=== PATIENT | male | born 1955 | race Caucasian/White ===

== ENCOUNTER 2016-03-10 15:14 | Emergency (ER) | payer MEDICAID ==
[~2016-03-10] VITALS: Ht 170.2 cm; Wt 78.2 kg
[~2016-03-10 15:14] MED LIST: 00186-0370-20 IH; ALBUTEROL SULFAT3 M3 IH; AMOXICILLIN 8751 TAB PO; COLACE 100100 MG/CAP PO; COMBIRESP IH; COMBIVENT INH14.7 GM IH; COZAAR 50MG50 MG/TAB PO; DIFLUCAN150 MG PO; DILAUDID 2MG TAB2 MG PO; DILAUDID 4MG TAB4 MG PO; FLEXERIL 1010 MG/TAB PO; FORADIL AERO0.012 MG IH; GENTAMICIN180 MG/502 NS; IPRATROPIUM BROM3 M1 IH; LEVAQUIN 5500 MG/TA1 PO; LEVAQUIN 750MG750 M1 PO; MIRALAX PA17 GM/Dose PO; MORPHINE 1515 MG/TAB PO; MS CONTIN 330 MG/TAB PO; MSIR30 MG PO; NASONEX SPRAY17 GM NS; NIRAVAM1 MG PO; PREDNISONE20 MG PO; PROAIR HFA0.09 MG/AC IH; PROVIGIL200 MG PO; RT SPIRIVA18 MCG IH; STOOL SOFTENER100 M2 PO; SYNTHROID 0.10.15 MG PO; TIROSINT150 MCG PO; XANAX 1MG1 MG PO
[2016-03-10 15:18] VITALS: TEMP 98.5
[2016-03-10 16:14] LABS: BASO % 0.2 % (0.0-2.0); EOS # 0.1 (0.0-0.7); EOS % 1.5 % (0-4.0); GRAN # 3.7 (1.4-6.5); GRAN % 77.4 % (42.2-75.2); LYMPH # 0.5 (1.2-3.4); LYMPH % 11.4 % (20.0-51.0); MEAN CELL VOLUME 91 fl (80.0-100.0); MEAN CORPUSCULAR HGB CONC 31 g/dl (33.0-37.0); MEAN PLATELET VOLUME 12.6 fl (7.4-10.4); MONO # 0.4 (0.1-0.6); MONO % 9.1 % (1.7-9.3); PLATELET COUNT 91 K/mm3 (130-400); RED BLOOD COUNT 3.08 M/mm3 (4.20-5.60); REDCELL DISTRIBUTION WIDTH-CV 18.5 % (11.5-14.5); WHITE BLOOD COUNT 4.7 K/mm3 (4.8-10.8)
[2016-03-10 16:29] LABS: ADJUSTED CALCIUM 8.4 mg/dL (8.4-10.2); ALBUMIN 2.6 gm/dL (3.5-5.0); BILIRUBIN,TOTAL 0.7 mg/dL (0.0-1.0); CALCIUM 7.3 mg/dL (8.4-10.2); CREATININE, serum 0.63 mg/dL (0.66-1.25); POTASSIUM 3.6 mmol/L (3.4-5.0); TOTAL PROTEIN 5.7 gm/dL (6.4-8.2)
[2016-03-10 16:40] LABS: HEMATOCRIT 28.1 % (42.0-52.0); HEMOGLOBIN 8.6 g/dl (13.5-18.0); MEAN CORPUSCULAR HEMOGLOBIN 28 pg (27.0-31.0)
[2016-03-10] MEDS ORDERED: FLEXERIL 1010 MG/TAB PO (16:48)
[2016-03-10 16:51] LABS: INR 1.1 (0.8-3.0); PROTHROMBIN TIME 12.3 SECONDS (9.7-12.8)
[2016-03-10] MEDS ORDERED: MSIR30 MG PO (16:51)
[2016-03-10 18:19] LABS: PERITONEAL FLUID RBC 1000 /mm3 (0-0)
[2016-03-10] MEDS ORDERED: ALDACTONE 100M100 MG PO (18:34)
[2016-03-10 19:20] VITALS: BP 116/66; PULSE 89
== END 2016-03-10 19:25 | disposition home or self-care (01) ==
LOC: COL.ER 15:14
PROVIDERS: Emergency Medicine
DX: R18.8 Other ascites (principal); R10.84 Generalized abdominal pain; D64.9 Anemia, unspecified; D69.6 Thrombocytopenia, unspecified; D72.819 Decreased white blood cell count, unspecified; K76.9 Liver disease, unspecified; J18.9 Pneumonia, unspecified organism; J44.9 Chronic obstructive pulmonary disease, unspecified; Z99.81 Dependence on supplemental oxygen; Z87.891 Personal history of nicotine dependence
CPT/HCPCS: J1170

== ENCOUNTER 2016-03-17 11:41 | Emergency (ER) | payer MEDICAID ==
[~2016-03-17] VITALS: Ht 170.2 cm; Wt 75.5 kg
[~2016-03-17 11:41] MED LIST changes: +ALDACTONE 100M100 MG PO
[2016-03-17 11:42] VITALS: TEMP 98.8
[2016-03-17 16:05] VITALS: BP 117/78; PULSE 65
== END 2016-03-17 16:13 ==
LOC: COL.ER 11:41
DX: R18.8 Other ascites (principal); K74.60 Unspecified cirrhosis of liver; R06.00 Dyspnea, unspecified
CPT/HCPCS: 19804

== ENCOUNTER → 2016-03-18 | Outpatient (CLI) | payer MEDICAID ==
[2016-03-18 18:57] LABS: ADJUSTED CALCIUM 8.9 mg/dL (8.4-10.2); ALBUMIN 2.5 gm/dL (3.5-5.0); BILIRUBIN,TOTAL 0.6 mg/dL (0.0-1.0); CALCIUM 7.7 mg/dL (8.4-10.2); CREATININE, serum 0.66 mg/dL (0.66-1.25); POTASSIUM 3.9 mmol/L (3.4-5.0); TOTAL PROTEIN 5.8 gm/dL (6.4-8.2)
[2016-03-18 18:58] LABS: BASO % 0.3 % (0.0-2.0); EOS # 0.2 (0.0-0.7); EOS % 6.5 % (0-4.0); GRAN # 2.4 (1.4-6.5); GRAN % 67.9 % (42.2-75.2); LYMPH # 0.6 (1.2-3.4); LYMPH % 16.3 % (20.0-51.0); MEAN CELL VOLUME 90 fl (80.0-100.0); MEAN CORPUSCULAR HGB CONC 31 g/dl (33.0-37.0); MEAN PLATELET VOLUME 12.4 fl (7.4-10.4); MONO # 0.3 (0.1-0.6); MONO % 8.7 % (1.7-9.3); RED BLOOD COUNT 2.93 M/mm3 (4.20-5.60); REDCELL DISTRIBUTION WIDTH-CV 19.2 % (11.5-14.5); WHITE BLOOD COUNT 3.6 K/mm3 (4.8-10.8)
[2016-03-18 19:00] LABS: HEMATOCRIT 26.5 % (42.0-52.0); HEMOGLOBIN 8.2 g/dl (13.5-18.0); MEAN CORPUSCULAR HEMOGLOBIN 28 pg (27.0-31.0); PLATELET COUNT 60 K/mm3 (130-400)
== END ==
LOC: ZLAB.STJ 18:50
PROVIDERS: Family Medicine
DX: Z01.89 Encounter for other specified special examinations (principal)

== ENCOUNTER → 2016-03-24 | Outpatient (CLI) | payer MEDICAID | LOC: ZCOL.LAB 12:46 | DX: Z01.89 Encounter for other specified special examinations (principal) ==

== ENCOUNTER → 2016-03-24 | Outpatient (REF) | LOC: ZLAB.STJ 15:21 | DX: Z01.89 Encounter for other specified special examinations (principal) ==

== ENCOUNTER → 2016-04-09 | Outpatient (CLI) | payer MEDICAID ==
[2016-04-09 15:29] LABS: ADJUSTED CALCIUM 8.9 mg/dL (8.4-10.2); ALBUMIN 3.5 gm/dL (3.5-5.0); BILIRUBIN,TOTAL 0.6 mg/dL (0.0-1.0); CALCIUM 8.5 mg/dL (8.4-10.2); CREATININE, serum 0.68 mg/dL (0.66-1.25); POTASSIUM 4.5 mmol/L (3.4-5.0); TOTAL PROTEIN 7.1 gm/dL (6.4-8.2)
== END ==
LOC: ZLAB.STJ 14:06 → EDSTATUS 14:50
PROVIDERS: Family Medicine
DX: Z01.89 Encounter for other specified special examinations (principal)

== ENCOUNTER → 2016-04-09 | Outpatient (CLI) | payer MEDICAID | LOC: ZLAB.STJ 16:04 | DX: Z53.9 Procedure and treatment not carried out, unspecified reason (principal) ==

== ENCOUNTER → 2016-07-02 | Outpatient (CLI) | payer MEDICAID ==
[2016-07-02 14:52] LABS: ALLEN TEST NO; ARTERIAL BLD GAS O2 SATURATION 94.3 % (92-100); ARTERIAL BLD GAS TCO2 CT 25.6; ARTERIAL BLOOD GAS BASE EXCESS 0.8 (-2-2); ARTERIAL BLOOD GAS HCO3 24.5 meq/L (22-26); ARTERIAL BLOOD GAS PO2 75.9 mmHg (80-100); ARTERIAL BLOOD GAS pH 7.46 (7.35-7.45); ATS? YES
== END ==
LOC: COL.PUL 06-25 08:35
PROVIDERS: Physician Assistant
DX: G47.19 Other hypersomnia (principal)

== ENCOUNTER 2017-01-15 16:40 | Inpatient (IN) | payer MEDICAID ==
[2017-01-15] VITALS (24 sets, daily range): BP systolic 115–142; BP diastolic 50–68; PULSE 84–93; TEMP 98.2–98.7; O2SAT 98–100
[~2017-01-15] VITALS: Ht 170.2 cm; Wt 59.4 kg
[2017-01-15 17:17] LABS: INR 1.1 (0.8-3.0); PROTHROMBIN TIME 12.2 SECONDS (9.7-12.8)
[2017-01-15] MEDS ORDERED: LASIX 40MG TABL40 MG PO (17:17)
[2017-01-15 17:20] LABS: PARTIAL THROMBOPLASTIN TIME 24.9 SECONDS (26.0-37.0)
[2017-01-15] MEDS ORDERED: DOXYCYCLINE HY100 MG PO (17:21)
[2017-01-15] MEDS ORDERED: PROVIGIL200 MG PO (17:21)
[2017-01-15] MEDS ORDERED: 00186-0370-20 IH (17:23)
[2017-01-15 22:20] LABS: EOS # 0.1 (0.0-0.7); EOS % 3.7 % (0-4.0); GRAN # 1.4 (1.4-6.5); GRAN % 66.6 % (42.2-75.2); LYMPH # 0.4 (1.2-3.4); LYMPH % 18.1 % (20.0-51.0); MEAN CELL VOLUME 77 fl (80.0-100.0); MEAN CORPUSCULAR HGB CONC 26 g/dl (33.0-37.0); MONO # 0.2 (0.1-0.6); MONO % 11.1 % (1.7-9.3); PLATELET COUNT 81 K/mm3 (130-400); RED BLOOD COUNT 2.02 M/mm3 (4.20-5.60); WHITE BLOOD COUNT 2.2 K/mm3 (4.8-10.8)
[2017-01-15 22:26] LABS: HEMATOCRIT 15.6 % (42.0-52.0); MEAN CORPUSCULAR HEMOGLOBIN 20 pg (27.0-31.0)
[2017-01-15 22:27] LABS: HEMOGLOBIN 4.1 g/dl (13.5-18.0)
[2017-01-16] VITALS (16 sets, daily range): BP systolic 100–128; BP diastolic 50–68; PULSE 72–98; TEMP 97.7–98.5
[2017-01-16 04:40] LABS: BASO % 0.4 % (0.0-2.0); EOS # 0.1 (0.0-0.7); EOS % 3.9 % (0-4.0); GRAN # 1.6 (1.4-6.5); GRAN % 67.9 % (42.2-75.2); LYMPH # 0.4 (1.2-3.4); LYMPH % 17.4 % (20.0-51.0); MEAN CORPUSCULAR HGB CONC 29 g/dl (33.0-37.0); MONO # 0.2 (0.1-0.6); MONO % 10.4 % (1.7-9.3); PLATELET COUNT 82 K/mm3 (130-400); RED BLOOD COUNT 2.55 M/mm3 (4.20-5.60); WHITE BLOOD COUNT 2.3 K/mm3 (4.8-10.8)
[2017-01-16 04:43] LABS: HEMATOCRIT 20.8 % (42.0-52.0); MEAN CELL VOLUME 82 fl (80.0-100.0); MEAN CORPUSCULAR HEMOGLOBIN 24 pg (27.0-31.0)
[2017-01-16 04:48] LABS: CALCIUM 7.9 mg/dL (8.4-10.2); CREATININE, serum 0.71 mg/dL (0.66-1.25); MAGNESIUM 1.9 mg/dL (1.6-2.3); POTASSIUM 3.8 mmol/L (3.4-5.0)
[2017-01-16 09:21] LABS: HEMATOCRIT 23.4 % (42.0-52.0); HEMOGLOBIN 6.9 g/dl (13.5-18.0)
[2017-01-16 14:07] LABS: ADJUSTED CALCIUM 8.8 mg/dL (8.4-10.2); ALBUMIN 3.3 gm/dL (3.5-5.0); CALCIUM 8.2 mg/dL (8.4-10.2); CREATININE, serum 0.66 mg/dL (0.66-1.25); TOTAL PROTEIN 5.4 gm/dL (6.4-8.2)
[2017-01-16 15:19] LABS: HEMATOCRIT 21.3 % (42.0-52.0); HEMOGLOBIN 6.3 g/dl (13.5-18.0)
[2017-01-16 21:25] LABS: HEMOGLOBIN 8.1 g/dl (13.5-18.0)
[2017-01-17 00:40] VITALS: BP 121/58; PULSE 71; TEMP 97.7
[2017-01-17 03:19] LABS: HEMATOCRIT 23.4 % (42.0-52.0)
[2017-01-17 04:00] VITALS: BP 102/57; PULSE 76; TEMP 97.4
[2017-01-17 05:56] LABS: MEAN CELL VOLUME 81 fl (80.0-100.0); MEAN CORPUSCULAR HGB CONC 30 g/dl (33.0-37.0); PLATELET COUNT 88 K/mm3 (130-400); RED BLOOD COUNT 3.18 M/mm3 (4.20-5.60); WHITE BLOOD COUNT 2.5 K/mm3 (4.8-10.8)
[2017-01-17 06:12] LABS: ADJUSTED CALCIUM 8.7 mg/dL (8.4-10.2); ALBUMIN 3.5 gm/dL (3.5-5.0); BILIRUBIN,TOTAL 1.8 mg/dL (0.0-1.0); CALCIUM 8.3 mg/dL (8.4-10.2); CREATININE, serum 0.66 mg/dL (0.66-1.25); POTASSIUM 3.9 mmol/L (3.4-5.0); TOTAL PROTEIN 5.7 gm/dL (6.4-8.2)
[2017-01-17 06:40] LABS: HEMATOCRIT 25.8 % (42.0-52.0); HEMOGLOBIN 7.7 g/dl (13.5-18.0); MEAN CORPUSCULAR HEMOGLOBIN 24 pg (27.0-31.0)
[2017-01-17 06:47] LABS: ADD PATHOLOGY DIFF REVIEW NO
[2017-01-17 07:20] LABS: BAND 3 % (0-10); EOSINOPHIL 5 % (0-4); LYMPHOCYTE 19 % (20.0-51.0); NEUTROPHILS 65 % (42.0-75.2); TOTAL CELLS COUNTED 100
[2017-01-17 07:21] LABS: ANISOCYTOSIS 2+; HYPOCHROMIA 3+; MICROCYTOSIS 1+; PLATELET ESTIMATE DECREASED (NORMAL)
[2017-01-17 08:00] VITALS: BP 105/45; PULSE 76; TEMP 99
[2017-01-17 12:00] VITALS: BP 110/55; PULSE 78; TEMP 97.2
[2017-01-17 16:00] VITALS: PULSE 80; TEMP 98
[2017-01-17 16:16] LABS: HEMATOCRIT 25.8 % (42.0-52.0); HEMOGLOBIN 7.7 g/dl (13.5-18.0)
[2017-01-17 20:00] VITALS: BP 102/54; PULSE 78; TEMP 98.8
[2017-01-17 20:42] LABS: HEMOGLOBIN 7.1 g/dl (13.5-18.0)
[2017-01-18] VITALS: BP 97/55; PULSE 75; TEMP 98.3
[2017-01-18 04:00] VITALS: BP 106/57; PULSE 70; TEMP 98.1
[2017-01-18 06:15] LABS: BASO % 0.6 % (0.0-2.0); EOS # 0.2 (0.0-0.7); EOS % 6.4 % (0-4.0); GRAN # 2.3 (1.4-6.5); GRAN % 66.1 % (42.2-75.2); LYMPH # 0.5 (1.2-3.4); LYMPH % 15.8 % (20.0-51.0); MEAN CELL VOLUME 83 fl (80.0-100.0); MEAN CORPUSCULAR HGB CONC 30 g/dl (33.0-37.0); MONO # 0.4 (0.1-0.6); MONO % 10.8 % (1.7-9.3); PLATELET COUNT 69 K/mm3 (130-400); RED BLOOD COUNT 3.27 M/mm3 (4.20-5.60); WHITE BLOOD COUNT 3.4 K/mm3 (4.8-10.8)
[2017-01-18 06:30] LABS: MEAN CORPUSCULAR HEMOGLOBIN 24 pg (27.0-31.0)
[2017-01-18 06:32] LABS: CALCIUM 8.1 mg/dL (8.4-10.2); CREATININE, serum 0.71 mg/dL (0.66-1.25); POTASSIUM 3.7 mmol/L (3.4-5.0)
[2017-01-18 08:12] VITALS: BP 115/48; PULSE 86; TEMP 99.4
[2017-01-18 12:00] VITALS: BP 114/64; PULSE 79
[2017-01-18] MEDS ORDERED: FERROUS SU325 MG/TAB PO (12:02)
[2017-01-18] MEDS ORDERED: PROTONIX 40MG T40 MG PO (12:03)
== END 2017-01-18 16:15 | disposition home or self-care (01) | DRG 432 ==
LOC: COL.ER 16:40 → ICU 18:45
PROVIDERS: Emergency Medicine; Family Medicine; Internal Medicine Gastroenterology; Nurse Practitioner
PROC: 0W3P8ZZ Control Bleeding in Gastrointestinal Tract, Via Natural or Artificial Opening Endoscopic (ICD-10-PCS; principal; 2017-01-17 09:15)
PROC: 0DJD8ZZ Inspection of Lower Intestinal Tract, Via Natural or Artificial Opening Endoscopic (ICD-10-PCS; 2017-01-17 09:15)
DX: K74.60 Unspecified cirrhosis of liver (principal); I85.11 Secondary esophageal varices with bleeding; K76.6 Portal hypertension; D62 Acute posthemorrhagic anemia; R18.8 Other ascites; E44.0 Moderate protein-calorie malnutrition; K31.819 Angiodysplasia of stomach and duodenum without bleeding; J44.9 Chronic obstructive pulmonary disease, unspecified; K75.4 Autoimmune hepatitis; D69.59 Other secondary thrombocytopenia; F17.210 Nicotine dependence, cigarettes, uncomplicated; K64.0 First degree hemorrhoids; K57.30 Diverticulosis of large intestine without perforation or abscess without bleeding; K72.10 Chronic hepatic failure without coma
CPT/HCPCS: 99223-AI; 99233-AI; 99239; C9113; J2704; J7030; J7050; P9016; Q9967

== ENCOUNTER → 2017-07-15 | Outpatient (REF) ==
[~2017-07-15] MED LIST changes: +DOXYCYCLINE HY100 MG PO; +FERROUS SU325 MG/TAB PO; +LASIX 40MG TABL40 MG PO; +PROTONIX 40MG T40 MG PO
== END ==
LOC: ZLAB.WCH 16:05
DX: Z01.89 Encounter for other specified special examinations (principal)

== ENCOUNTER 2017-11-08 18:22 | Inpatient (IN) | payer MEDICAID ==
[~2017-11-08] VITALS: Ht 167.6 cm; Wt 56.0 kg
[2017-11-08 19:03] LABS: BASO # 0.1 (0.0-0.2); BASO % 0.5 % (0.0-2.0); EOS # 0.6 (0.0-0.7); EOS % 5.7 % (0-4.0); GRAN # 6.9 (1.4-6.5); GRAN % 67.2 % (42.2-75.2); HEMOGLOBIN 10.1 g/dl (13.5-18.0); LYMPH # 1.5 (1.2-3.4); LYMPH % 14.7 % (20.0-51.0); MEAN CELL VOLUME 100 fl (80.0-100.0); MEAN CORPUSCULAR HEMOGLOBIN 33 pg (27.0-31.0); MEAN CORPUSCULAR HGB CONC 33 g/dl (33.0-37.0); MEAN PLATELET VOLUME 12.1 fl (7.4-10.4); MONO # 1.2 (0.1-0.6); MONO % 11.5 % (1.7-9.3); PLATELET COUNT 92 K/mm3 (130-400); RED BLOOD COUNT 3.08 M/mm3 (4.20-5.60); REDCELL DISTRIBUTION WIDTH-CV 13.7 % (11.5-14.5)
[2017-11-08 19:09] LABS: HEMATOCRIT 30.9 % (42.0-52.0)
[2017-11-08 19:11] LABS: ALANINE AMINOTRANSFERASE 37 U/L (21-72); ALBUMIN 3.1 gm/dL (3.5-5.0); ALKALINE PHOSPHATASE 118 U/L (50-136); ANION GAP 5 mmol/L (7-16); AST,SGOT 35 U/L (15-37); BILIRUBIN,TOTAL 1.8 mg/dL (0.0-1.0); BLOOD UREA NITROGEN 28 mg/dL (9-20); CALCIUM 8.1 mg/dL (8.4-10.2); CARBON DIOXIDE 35 mmol/L (22-30); CHLORIDE 96 mmol/L (98-107); CREATININE, serum 0.52 mg/dL (0.66-1.25); GLUCOSE 100 mg/dL (74-106); LIPASE 93 U/L (23-300); POTASSIUM 4.9 mmol/L (3.4-5.0); SODIUM 136 mmol/L (137-145); TOTAL PROTEIN 5.7 gm/dL (6.4-8.2)
[2017-11-08 19:12] LABS: ALCOHOL(ethanol),MEDICAL < 10 mg/dL
[2017-11-08] MEDS ORDERED: COLACE 100100 MG/CAP PO (19:13)
[2017-11-08] MEDS ORDERED: FERROUS SU325 MG/TAB PO (19:13)
[2017-11-08] MEDS ORDERED: CORGARD20 MG PO (19:15)
[2017-11-08] MEDS ORDERED: ALDACTONE50 MG PO (19:16)
[2017-11-08 20:52] LABS: COLLECTION METHOD CLEAN CATCH
[2017-11-08 21:01] LABS: PH 7 (5-8); SQUAMOUS EPITHELIAL None Seen /hpf; URINE APPEARANCE Clear; URINE BACTERIA None Seen /hpf; URINE BILIRUBIN Negative (NEGATIVE); URINE BLOOD Negative (NEGATIVE); URINE COLOR Yellow; URINE GLUCOSE Negative (NEGATIVE); URINE KETONE Trace (NEGATIVE); URINE LEUKOCYTE ESTERASE Negative (NEGATIVE); URINE NITRATE Negative (NEGATIVE); URINE PROTEIN(semi-quant) Negative (NEGATIVE); URINE RBC 0-2 /hpf; URINE UROBILINOGEN >=4.0 mg/dL (NEGATIVE)
[2017-11-08 22:35] VITALS: BP 116/60; PULSE 73; TEMP 98.1
[2017-11-09] VITALS (117 sets, daily range): BP systolic 71–149; BP diastolic 45–87; PULSE 74–146; TEMP 96.8–98.9; O2SAT 35–100
[2017-11-09 04:24] LABS: HEMATOCRIT 25.7 % (42.0-52.0); HEMOGLOBIN 8.4 g/dl (13.5-18.0)
[2017-11-09 04:34] LABS: CALCIUM 7.6 mg/dL (8.4-10.2); CREATININE, serum 0.45 mg/dL (0.66-1.25); POTASSIUM 4.4 mmol/L (3.4-5.0)
[2017-11-09 12:45] LABS: HEMATOCRIT 26.5 % (42.0-52.0); HEMOGLOBIN 8.8 g/dl (13.5-18.0)
[2017-11-09 13:22] LABS: INR 1.3 (0.8-3.0); PROTHROMBIN TIME 14.7 SECONDS (9.7-12.8)
[2017-11-09 16:50] LABS: HEMATOCRIT 23.2 % (42.0-52.0); HEMOGLOBIN 7.6 g/dl (13.5-18.0)
[2017-11-09 18:46] LABS: ARTERIAL BLD GAS O2 SATURATION 98.5 % (92-100); ARTERIAL BLD GAS TCO2 CT 18.3; ARTERIAL BLOOD GAS BASE EXCESS -8.3 (-2-2); ARTERIAL BLOOD GAS HCO3 17.2 meq/L (22-26); ARTERIAL BLOOD GAS PCO2 35.1 mmHg (35-45); ARTERIAL BLOOD GAS pH 7.31 (7.35-7.45)
[2017-11-09 18:47] LABS: ARTERIAL BLOOD GAS PO2 530.3 mmHg (80-100)
[2017-11-09 22:50] LABS: HEMATOCRIT 33.4 % (42.0-52.0); HEMOGLOBIN 10.9 g/dl (13.5-18.0)
[2017-11-09 23:00] LABS: CALCIUM 6.7 mg/dL (8.4-10.2); CREATININE, serum 0.89 mg/dL (0.66-1.25); MAGNESIUM 1.6 mg/dL (1.6-2.3); PHOSPHOROUS 4.4 mg/dL (2.5-4.5); POTASSIUM 5.5 mmol/L (3.4-5.0)
[2017-11-10] VITALS (24 sets, daily range): BP systolic 46; BP diastolic 36; PULSE 138; TEMP 98.1; O2SAT 32–99
== END 2017-11-10 03:10 | disposition expired | DRG 300 ==
LOC: COL.ER 18:22 → MEDICAL 20:46 → ICU 11-09 15:39
PROVIDERS: Emergency Medicine; Family Medicine; Internal Medicine Gastroenterology; Internal Medicine Pulmonary Disease
PROC: 5A1935Z Respiratory Ventilation, Less than 24 Consecutive Hours (ICD-10-PCS; 2017-11-09)
PROC: 0DJ08ZZ Inspection of Upper Intestinal Tract, Via Natural or Artificial Opening Endoscopic (ICD-10-PCS; principal; 2017-11-09 14:45)
DX: I86.4 Gastric varices (principal); K92.0 Hematemesis; K76.6 Portal hypertension; D62 Acute posthemorrhagic anemia; I85.10 Secondary esophageal varices without bleeding; J44.9 Chronic obstructive pulmonary disease, unspecified; K75.4 Autoimmune hepatitis; Z51.5 Encounter for palliative care; Z66 Do not resuscitate; K74.69 Other cirrhosis of liver; G89.29 Other chronic pain; F17.219 Nicotine dependence, cigarettes, with unspecified nicotine-induced disorders; E03.9 Hypothyroidism, unspecified; D69.59 Other secondary thrombocytopenia; R53.81 Other malaise; D63.8 Anemia in other chronic diseases classified elsewhere; I95.89 Other hypotension; E86.1 Hypovolemia; K71.51 Toxic liver disease with chronic active hepatitis with ascites; T17.918A Gastric contents in respiratory tract, part unspecified causing other injury, initial encounter; Y83.8 Other surgical procedures as the cause of abnormal reaction of the patient, or of later complication, without mention of misadventure at the time of the procedure; Y73.0 Diagnostic and monitoring gastroenterology and urology devices associated with adverse incidents; Y92.234 Operating room of hospital as the place of occurrence of the external cause; K72.90 Hepatic failure, unspecified without coma; K59.00 Constipation, unspecified
CPT/HCPCS: C9113; J2250; J2270; J2354; J2405; J2543; J2704; J7030; J7040; J7060; P9016; Q9967